=== PATIENT | female | born 1940 | race Caucasian/White ===

== ENCOUNTER 2016-10-03 09:06 | Inpatient (IN) | payer OTHER ==
[2016-09-07 13:57] VITALS: BMI 24.0
--- NOTE | 2016-09-07 14:28 | PAT Medication Instructions ---
Service Date Sep 07, 2016. Current Home Medication List Aspirin (Aspirin Ec), 81 MG PO QAM Cyanocobalamin (Vitamin B12 500MCG), 1,000 MCG PO QAM Hydrochlorothiazide (Hctz), 25 MG PO QAM Lisinopril (Zestril), 5 MG PO QAM Misc Natural Products (Osteo Bi-Flex Advanced Do), 1 TAB PO BID Naproxen (Aleve), 440 MG PO PRN Pravastatin (Pravachol ), 40 MG PO HS Medication Instructions For Your Scheduled Surgery - Hold the following medications 2 weeks prior to surgery: Misc Natural Products (Osteo Bi-Flex Advanced Do), 1 TAB PO BID - Hold the following medications 7-10 days prior to surgery per surgeon's instructions: Naproxen (Aleve), 440 MG PO PRN - Hold the following medications the morning of surgery: Cyanocobalamin (Vitamin B12 500MCG), 1,000 MCG PO QAM Hydrochlorothiazide (Hctz), 25 MG PO QAM Lisinopril (Zestril), 5 MG PO QAM - Take the following medications the morning of surgery with a sip of water OTHERWISE NOTHING TO EAT OR DRINK AFTER MIDNIGHT: Aspirin (Aspirin Ec), 81 MG PO QAM - Take the following medications as scheduled the night before surgery: Pravastatin (Pravachol ), 40 MG PO HS If you have any questions please call us at [phone] or [phone] or [phone]
[2016-09-07 14:56] LABS: BASO % 0.3 %; BASO ABS # 0.02 K/uL (0-0.2); COMPLETE YES; EOS % 0.8 %; HEMATOCRIT 40.7 % (37-47); IG% 0.1 %; LYMPH % 22.8 %; LYMPH ABS # 1.65 K/uL (1.2-3.4); MEAN CELL VOLUME 87.5 fL (80-100); MEAN CORPUSCULAR HEMOGLOBIN 29.2 pg (25-34); MEAN CORPUSCULAR HGB CONC 33.4 g/dl (32-36); MEAN PLATELET VOLUME 9.6 fL (7.4-10.4); MONO % 6.1 %; NEUT % 69.9 %; PLATELET COUNT 348 K/uL (130-400); RED BLOOD COUNT 4.65 M/uL (4.2-5.4); WHITE BLOOD COUNT 7.24 K/uL (4.8-10.8)
[2016-09-07 15:11] LABS: INR 0.9 (0.9-1.1); PROTHROMBIN TIME (PATIENT) 10.1 SECONDS (9.0-12.0)
--- NOTE | 2016-09-07 15:17 | DIAGNOSTIC IMAGING REPORT ---
TWO VIEW CHEST CLINICAL HISTORY: Preoperative examination. FINDINGS: PA and lateral chest radiographs are obtained. No prior studies are available for comparison at the time of dictation. The cardiomediastinal silhouette is unremarkable. There is atherosclerotic calcification of the thoracic aorta. There are low lung volumes and bibasilar atelectasis. No airspace consolidation or pleural effusion is identified. Nonspecific interstitial thickening is likely chronic. There is no pneumothorax. The skeletal structures are osteopenic. Degenerative change and scoliosis are noted throughout the imaged thoracolumbar spine. IMPRESSION: No active disease in the chest. Electronically signed by: Deep Kenney M.D. 09/07/2016 3:16 PM Dictated Date/Time: 09/07/2016 3:15 PM
[2016-09-07 15:25] LABS: URINE APPEARANCE CLEAR (CLEAR); URINE BILIRUBIN NEG (NEG); URINE COLOR YELLOW; URINE NITRITE NEG (NEG); URINE SPECIFIC GRAVITY 1.009 (1.000-1.030); UROBILINOGEN NEG (NEG); ZZUR CULT IF INDIC CLEAN CATCH NO
[2016-09-07 15:30] LABS: MANUAL MICROSCOPIC REQUIRED? NO; REVIEW REQ? NO
[2016-09-07 16:21] LABS: BUN/CREATININE RATIO 18.2 (10-20); CALCIUM 9.8 mg/dl (8.5-10.1); CREATININE 0.69 mg/dl (0.60-1.20); POTASSIUM 3.9 mmol/L (3.5-5.1)
--- NOTE | 2016-10-02 11:44 | HISTORY & PHYSICAL EXAMINATION ---
DATE OF ADMISSION: 10/03/2016 CHIEF COMPLAINT: Left knee pain. HISTORY OF PRESENT ILLNESS: Samantha is a 75-year-old female with an 8-9 year history of left knee pain. She rates her pain as 6/10. She has pain with her daily activities. She has limited standing and walking tolerance. Pain is worse with weightbearing. The patient has failed injections, home exercise program, knee bracing and anti-inflammatories without relief. She has failed conservative treatment and is scheduled for left knee replacement. PAST MEDICAL HISTORY: Hypertension, hypercholesterolemia. She denies heart disease, diabetes or DVT. PAST SURGICAL HISTORY: Excision of brain tumor, benign. SOCIAL HISTORY: The patient denies alcohol or tobacco use. She lives in a single story home. She is and retired. FAMILY HISTORY: Positive for DVT in her sister. MEDICATIONS: Hydrochlorothiazide 25 mg daily, lisinopril 5 mg daily, pravastatin 40 mg daily, aspirin 81 mg daily, BioFlex and vitamin B12 at 1000 mcg daily. ALLERGIES: CLINDAMYCIN CAUSES HIVES. REVIEW OF SYSTEMS: See HPI. Ten other systems reviewed, all negative. PHYSICAL EXAMINATION: VITAL SIGNS: Height 5 feet 2 inches, weight 131 pounds, BMI is 24. GENERAL: This is a well-developed and well-nourished female who is alert and oriented x3. Mood and affect are appropriate. HEENT: Normocephalic and atraumatic. Mucous membranes are moist and intact. NECK: Supple without lymphadenopathy. HEART: Regular rate and rhythm without murmurs, rubs or gallops. LUNGS: Clear to auscultation without wheezes or rhonchi. ABDOMEN: Soft and nontender. Bowel sounds are equal and active. EXTREMITIES: No ecchymosis, redness or warmth. She has a varus deformity. Range of motion is from 5-100 degrees. She has no laxity. She is neurovascularly intact with +5/5 strength. X-RAY EXAMINATION: AP and lateral views show joint space narrowing and osteophyte formation. IMPRESSION: Degenerative joint disease, left knee. PLAN: The patient will be admitted for a left total knee arthroplasty. We will plan on aspirin for DVT prophylaxis. She has [facility] and will need either outpatient or home nursing agency for physical therapy.
[~2016-10-03] VITALS: Ht 157.5 cm; Wt 59.6 kg
[2016-10-03] VITALS (7 sets, daily range): BP systolic 108–169; BP diastolic 67–93; PULSE 89–110; TEMP 36.3–36.9; O2SAT 94–99; Ht 157.5 cm; Wt 59.6 kg
[2016-10-03] MEDS: TRANEXAMIC ACID INJ 1,000 MG in SODIUM CHLORIDE 0.9% 100ML 100 ML IV SCH ×2 (06:30→12:00)
[~2016-10-03 09:06] MED LIST: ACETAMINOPHEN 500 MG TAB PO SCH; ASPI81TA28 PO; CEFAZOLIN 2000 MG/60 ML D5W 60 ML IV SCH; CYAN500T13 PO; CeleBREX 200 MG CAP PO SCH; DEXAMETHASONE 4 MG TAB PO SCH; FAMOTIDINE 20 MG TAB PO SCH; GABAPENTIN 300 MG CAP PO SCH; HYDR25TA4 PO; LACTATED RINGER'S 1000ML 1,000 ML IV SCH; LACTATED RINGER'S 1000ML 500 ML IV SCH; LISI-729 PO; METOCLOPRAMIDE HCL 10 MG TAB PO SCH; MISCTAB78 PO; NAPR1TAB9 PO; OXYCODONE HCL 10 MG TABCR (OXYCONTIN) PO SCH; POLYMYXIN B SULFATE 100,000 UNITS in NSS 100ML IR SCH; PRAV20TA PO; ROPIVACAINE 5MG/ML 30 ML 150 MG, BUPIVACAINE/EPINEPHR 0.5% MPF 30 ML, KETOROLAC TROMETH... INFIL SCH; VANCOMYCIN INJ 400 MG in NSS 100ML IR SCH
[2016-10-03] MEDS ORDERED: BUPIVACAINE 0.25% 30 ML VIAL ONE (09:18)
[2016-10-03] MEDS ORDERED: BUPIVACAINE 0.5 % 5 MG/1 ML PF 10ML VIAL ONE (09:19)
[2016-10-03] MEDS ORDERED: DIAZ2TAB PO (09:34)
--- NOTE | 2016-10-03 09:50 | History & Physical Bridge Note ---
H&P Re-Evaluation Bridge Note: I have examined the patient, reviewed the History & Physical and in the interval since the performance of the History & Physical I have noted the following changes of clinical significance: No changes noted
[2016-10-03] MEDS ORDERED: LIDOCAINE HCL 2% 2 ML VIAL (20MG/ML) ONE (09:51)
[2016-10-03] MEDS ORDERED: PROPOFOL IV EMULSION 10 MG/ML 20 ML VIAL IV ONE (09:51)
[2016-10-03] MEDS ORDERED: MIDAZOLAM HCL 1 MG/ML 2ML VIAL ONE (09:52)
[2016-10-03] MEDS ORDERED: BACITRACIN 50000 UNIT VIAL ONE (10:33)
[2016-10-03] MEDS ORDERED: POVIDONE-IODINE OP SOLN 30 ML BTL ONE (10:33)
[2016-10-03] MEDS ORDERED: ORTHO JOINT ANESTHETIC ONE (10:33)
[2016-10-03] MEDS ORDERED: BUPIVACAINE/EPINEPHRINE 0.25% 1:200,000 30 ML VIAL ONE (10:33)
[2016-10-03] MEDS ORDERED: ONDANSETRON INJ 2 MG/ML 2 ML VIAL ONE (12:10)
[2016-10-03] MEDS ORDERED: RANITIDINE HCL 25 MG/ML INJ ONE (12:10)
[2016-10-03] MEDS ORDERED: PHENYLEPHRINE 100MCG/ML 5ML SYR ONE (13:12)
[2016-10-03] MEDS ORDERED: EpHEDrine SULFATE 50MG/5ML SYR ONE (13:12)
--- NOTE | 2016-10-03 13:18 | [facility] Post Operative Brief Note ---
Immediate Operative Summary Operative Date October 03, 2016. Pre-Operative Diagnosis Left Knee Degenerative Joint Disease Post-Operative Diagnosis Same as preop Procedure(s) Performed Left Total Knee Arthroplasty Surgeon Dr. Mckinney Bobbin Inspector Surgeon(s) EVEILO Estimated Blood Loss 50 ML Findings SEVERE DZ Specimens A. Left Knee Bone and Tissue Complication(s) None Disposition Recovery Room / PACU
[2016-10-03] MEDS ORDERED: BISACODYL 10 MG SUPP PR PRN (13:30)
[2016-10-03] MEDS ORDERED: MoRPHine SULFATE 2 MG/ML CARP IV PRN (13:30)
[2016-10-03] MEDS ORDERED: ZOLPIDEM TARTRATE 5 MG TAB PO PRN (13:30)
[2016-10-03] MEDS ORDERED: OXYCODONE HCL IR 5 MG TAB (IMMEDIATE RELEASE) PO PRN (13:30)
[2016-10-03] MEDS ORDERED: ALUMINUM/MAGNESIUM/SIMETH (MAALOX MAX) 30 ML UDC PO PRN (13:30)
[2016-10-03] MEDS ORDERED: TRAMADOL HCL 50 MG TAB PO PRN (13:30)
[2016-10-03] MEDS ORDERED: METOCLOPRAMIDE HCL INJ 5 MG/ML 2 ML VIAL IV PRN (13:30)
[2016-10-03] MEDS ORDERED: KETOROLAC TROMETHAMINE 15 MG/ML VIAL IV. PRN (13:30)
[2016-10-03] MEDS ORDERED: MAGNESIUM HYDROXIDE SUSP 30 ML UDC PO PRN (13:30)
[2016-10-03] MEDS ORDERED: ONDANSETRON INJ 2 MG/ML 2 ML VIAL IV PRN ×2 (13:30→14:30)
[2016-10-03] MEDS ORDERED: DiphenhydrAMINE HCL 50 MG/ML VIAL IV PRN (13:30)
[2016-10-03] MEDS ORDERED: SOD PHOSPHATE/SOD BIPHOSPHATE ENEMA 132 ML BTL PR PRN (13:30)
[2016-10-03] MEDS ORDERED: PHENYLEPHRINE 100MCG/ML 5ML SYR IV PRN (14:30)
[2016-10-03] MEDS ORDERED: EpHEDrine SULFATE INJ 50 MG/ML AMP IV PRN (14:30)
[2016-10-03] MEDS ORDERED: KETOROLAC TROMETHAMINE 30 MG/ML VIAL IV. PRN (14:30)
[2016-10-03] MEDS ORDERED: ATROPINE SULFATE 0.1 MG/ML 5ML SYR IV PRN (14:30)
[2016-10-03] MEDS ORDERED: HYDROmorphone INJ 2 MG/ML SYR/VIAL IV PRN (14:30)
--- NOTE | 2016-10-03 14:41 | DIAGNOSTIC IMAGING REPORT ---
LEFT KNEE 1 OR 2 VIEWS ROUTINE CLINICAL HISTORY: AP/LATERAL IN PACU LEFT KNEE joint replacement COMPARISON: None. DISCUSSION: Anatomic alignment status post total left knee replacement. Good contact between prosthetic and Bone. Expected soft tissue postoperative change. IMPRESSION: Anatomic alignment status post total left knee replacement Electronically signed by: Brandin Magallanes M.D. 10/03/2016 2:40 PM Dictated Date/Time: 10/03/2016 2:39 PM
--- NOTE | 2016-10-03 15:45 | Anesthesiology Progress Note ---
Anesthesia Post Op Note Date & Time October 03, 2016 at 15:45 Vital Signs Pain Intensity: 0 Vital Signs Past 12 Hours Date Time Temp Pulse Resp B/P Pulse Ox O2 Delivery O2 Flow Rate FiO2 10/03/16 15:25 92 18 105/63 97 Nasal Cannula 2 10/03/16 15:15 89 16 106/66 96 Nasal Cannula 2 10/03/16 15:05 37.1 92 24 107/68 97 Nasal Cannula 2 10/03/16 14:55 90 16 100/67 94 Nasal Cannula 2 10/03/16 14:45 92 16 103/73 98 Nasal Cannula 2 10/03/16 14:35 36.9 95 20 104/67 98 Nasal Cannula 2 10/03/16 14:25 92 22 112/65 98 Nasal Cannula 2 10/03/16 14:15 92 18 102/64 99 Nasal Cannula 2 10/03/16 14:05 94 18 106/67 99 Nasal Cannula 2 10/03/16 13:56 36.5 93 16 102/59 98 Nasal Cannula 2 10/03/16 09:45 36.9 96 18 169/93 99 Room Air Notes Mental Status: alert / awake / arousable, participated in evaluation Pt Amnestic to Procedure: Yes Nausea / Vomiting: adequately controlled Pain: adequately controlled Airway Patency, RR, SpO2: stable & adequate BP & HR: stable & adequate Hydration State: stable & adequate Anesthetic Complications: no major complications apparent
[2016-10-03] MEDS: D5W AND 1/2NSS + 20MEQ KCL 1,000 ML IV SCH (18:31)
--- NOTE | 2016-10-03 20:06 | OPERATIVE REPORT ---
DATE OF OPERATION: 10/03/2016 PREOPERATIVE DIAGNOSIS: Degenerative arthritis, left knee. POSTOPERATIVE DIAGNOSIS: Same. PROCEDURE: Left total knee with patient matched implant. SURGEON: Dr. Mckinney. GOLD STAMPER: Osorio Pierre PA-C. ANESTHESIA: Spinal. BLOOD LOSS: 50 mL. REPLACEMENT FLUIDS: 1600 mL crystalloid. DRAINS: Hemovacs x1. CULTURES: None. COMPLICATIONS: None. COMPONENTS USED: Lubin \T\ Nephew Journey Knee System: Femur size 5, tibia size 4 x 9, patella size 38. NOTE: Osorio Pierre PA-C was present and assisted throughout due to the complicated nature of this case. He helped with preparation and setup, first assisted throughout and personally closed the capsule, subcutaneous and skin layers and applied the postoperative dressing. OPERATION AND FINDINGS: DESCRIPTION: Following satisfactory spinal, the patient was supine. A tourniquet was placed but not inflated. The lower extremity was prepared with ChloraPrep and draped sterilely. Following a surgical time-out, a midline incision was made with a median parapatellar arthrotomy. The knee showed severe grade 4 changes throughout with severe disease of the patellofemoral joint and grade 4 changes also of the medial compartment. The cruciate ligaments were excised. The patient matched femoral block was applied. Femoral distal rotation and resection were set and completed. The 4-in-1 block was used to finish preparation of the femur. The patient matched tibial block was applied. Tibial resection was completed. The patella was freehand cut. Soft tissue balancing was completed and a trial reduction showed good tensioning stability on the collateral ligaments, stable range of motion with full extension and the patella tracked well. The trial components were removed. The capsule was prepared with the orthopedic cocktail and after irrigation, the components were cemented using Simplex G cement. When the cement had hardened, the knee was checked and showed good stability. A Betadine soak was performed. When the Betadine was irrigated 2 drains were placed. The arthrotomy was closed with a running suture of 0 V-Loc and reinforced with 1 Vicryl. Subcutaneous tissues were closed with 2-0 Vicryl and the skin with a running subcuticular stitch of 3-0 V-Loc. Dermabond and a dry dressing were applied. The patient was returned to her bed in stable condition. I attest to the content of the Intraoperative Record and any orders documented therein. Any exceptio ns are noted below.
[2016-10-03] MEDS: CEFAZOLIN IV 1,000 MG in DEXTROSE 5% 50ML 50 ML IV SCH (20:25)
[2016-10-03] MEDS: ASPIRIN 81 MG ECTAB PO SCH (20:27)
[2016-10-03] MEDS ORDERED: SENNA 8.6 MG TAB PO SCH (21:00)
[2016-10-03] MEDS ORDERED: PRAVASTATIN SOD 40 MG TAB PO SCH (21:00)
[2016-10-03] MEDS: ACETAMINOPHEN 500 MG TAB PO SCH (22:22)
[2016-10-04 03:15] VITALS: BP 107/68; PULSE 89; TEMP 36.9; O2SAT 94
[2016-10-04] MEDS: CEFAZOLIN IV 1,000 MG in DEXTROSE 5% 50ML 50 ML IV SCH (03:15)
[2016-10-04] MEDS: D5W AND 1/2NSS + 20MEQ KCL 1,000 ML IV SCH (03:15)
[2016-10-04] MEDS: ACETAMINOPHEN 500 MG TAB PO SCH (05:38)
[2016-10-04 07:00] LABS: HEMATOCRIT 33.5 % (37-47); MEAN CELL VOLUME 86.8 fL (80-100); MEAN CORPUSCULAR HEMOGLOBIN 29.5 pg (25-34); MEAN PLATELET VOLUME 9.6 fL (7.4-10.4); PLATELET COUNT 291 K/uL (130-400); RED BLOOD COUNT 3.86 M/uL (4.2-5.4); WHITE BLOOD COUNT 12.51 K/uL (4.8-10.8)
[2016-10-04 07:41] LABS: BUN/CREATININE RATIO 22.7 (10-20); CALCIUM 8.5 mg/dl (8.5-10.1); CREATININE 0.81 mg/dl (0.60-1.20)
--- NOTE | 2016-10-04 07:54 | Anesthesiology Progress Note ---
Anesthesia Post Op Note Date & Time October 04, 2016 at 07:54 Vital Signs Pain Intensity: 0.0 Vital Signs Past 12 Hours Date Time Temp Pulse Resp B/P Pulse Ox O2 Delivery O2 Flow Rate FiO2 10/04/16 03:15 36.9 89 16 107/68 94 Room Air 10/03/16 23:30 Room Air 10/03/16 22:56 36.3 99 16 110/70 95 Room Air Notes Mental Status: alert / awake / arousable, participated in evaluation Pt Amnestic to Procedure: Yes Nausea / Vomiting: adequately controlled Pain: adequately controlled Airway Patency, RR, SpO2: stable & adequate BP & HR: stable & adequate Hydration State: stable & adequate Anesthetic Complications: no major complications apparent
[2016-10-04] MEDS ORDERED: ONDA8TAB6 PO (08:01)
[2016-10-04] MEDS ORDERED: SNK PO (08:01)
[2016-10-04] MEDS ORDERED: CLB200 PO (08:01)
[2016-10-04] MEDS ORDERED: ACET-1138 PO (08:01)
[2016-10-04] MEDS ORDERED: RXC5 PO (08:01)
[2016-10-04] MEDS ORDERED: ASPI81TA28 PO (08:01)
--- NOTE | 2016-10-04 08:01 | Orthopedic Progress Note ---
Orthopedic Progress Note Date of Service October 04, 2016. Subjective Post OP Day: 1 (L TKA ) Reports: feeling well, pain controlled w PO medications, Denies: SOB, complaints , light headedness, nausea / vomiting Objective calves soft nontender, N/V intact, dressing C/D/I, A&O x3, toes mobile, hemovac drainage (125 LAST SHIFT) Date Time Temp Pulse Resp B/P Pulse Ox O2 Delivery O2 Flow Rate FiO2 10/04/16 03:15 36.9 89 16 107/68 94 Room Air 10/03/16 23:30 Room Air 10/03/16 22:56 36.3 99 16 110/70 95 Room Air 10/03/16 19:15 36.6 98 16 113/73 98 Nasal Cannula 3.0 10/03/16 18:15 36.6 110 18 132/78 98 Nasal Cannula 3.0 10/03/16 17:15 36.8 101 16 120/75 98 Nasal Cannula 3.0 10/03/16 16:15 Nasal Cannula 3.0 10/03/16 16:15 36.9 97 14 108/67 94 Nasal Cannula 3.0 10/03/16 16:15 94 Nasal Cannula 3.0 10/03/16 15:55 36.9 92 22 103/59 96 Nasal Cannula 2 10/03/16 15:45 36.9 94 17 103/62 95 Nasal Cannula 2 10/03/16 15:45 36.8 89 16 116/69 98 Nasal Cannula 3.0 10/03/16 15:35 92 22 103/63 95 Nasal Cannula 2 10/03/16 15:25 92 18 105/63 97 Nasal Cannula 2 10/03/16 15:15 89 16 106/66 96 Nasal Cannula 2 10/03/16 15:05 37.1 92 24 107/68 97 Nasal Cannula 2 10/03/16 14:55 90 16 100/67 94 Nasal Cannula 2 10/03/16 14:45 92 16 103/73 98 Nasal Cannula 2 10/03/16 14:35 36.9 95 20 104/67 98 Nasal Cannula 2 10/03/16 14:25 92 22 112/65 98 Nasal Cannula 2 10/03/16 14:15 92 18 102/64 99 Nasal Cannula 2 10/03/16 14:05 94 18 106/67 99 Nasal Cannula 2 10/03/16 13:56 36.5 93 16 102/59 98 Nasal Cannula 2 10/03/16 09:45 36.9 96 18 169/93 99 Room Air Laboratory Results 24 Hours: Test 10/04/16 06:40 Hematocrit 33.5 % Hemoglobin 11.4 g/dL Assessment & Plan Assessment: POD 1 L TKA Plan: HOME TODAY W HOME HEALTH PT WILL CHOOSE Inhouse Planning Pain Management: Celebrex, PO Tylenol, Oxy IR DVT Prophylaxis: TEDs, SCDs, ASA Discharge Planning Discharge Planning: home with home health Pain Management: Celebrex, PO Tylenol, Oxy IR DVT Prophylaxis: TEDs, ASA
--- NOTE | 2016-10-04 08:02 | Discharge Instructions ---
Discharge Instructions Date of Service October 04, 2016. Admission Reason for Admission: Left Knee Degenerative Arthritis Discharge Discharge Diagnosis / Problem: sp left TKA Discharge Goals Goal(s): Decrease discomfort, Improve function, Increase independence Activity Recommendations Activity Limitations: per Instructions/Follow-up section . Instructions / Follow-Up Instructions / Follow-Up ACTIVITY RECOMMENDATIONS: SELF CARE INSTRUCTIONS AFTER TOTAL KNEE REPLACEMENT A. You may need to continue a physical therapy program after discharge from the hospital. There are several options available to you. Your doctor will assist you in selecting the best one for you. 1. An out-patient facility 2 to 3 times a week for therapy or home therapy. 2. Continue working on all exercises taught to you in the hospital. Your goals should be to increase bending of your knee to 90 degrees and beyond and to fully straighten your knee. B. You may progress at your own pace from walking with a walker or crutches to a cane; then to no assistive devices. C. Make walking a part of your daily routine. Be up as much as comfortable with rest periods throughout the day. Rest with leg elevation is very important. Use the ice wrap frequently for the first 3-4 weeks. D. There are no restrictions on activities. You may ride in a car, shop, participate in first leveler and all social activities. E. Wear the long elastic stockings (MANFRED hose) 20 hours a day for 2 weeks after surgery. They can be removed several times a day for laundering and for a bath. F. You may shower, no tub baths until cleared by your doctor. SPECIAL CARE INSTRUCTIONS: VERY IMPORTANT TO READ AND REVIEW A. There are a few signs you need to watch for after you are home. Call [facility] if you notice any of the followin. Increased severe knee pain. Some pain is expected especially when you exercise. 2. Increased swelling in your leg or knee; pain or swelling of the calf muscle in either lower leg. 3. Any fluid drainage from the incision. 4. Shortness of breath or chest pain. B. Please call [facility] at if you have any concerns or questions about your operation or recovery. The doctor or his nurse will return your call promptly. C. You must take antibiotics before dental work, bladder, bowel or other surgery. Your doctor will provide you with a permanent care to carry describing this precaution. IMPORTANT: * REMEMBER TO TAKE ASPIRIN, 81 MG, TWICE DAILY FOR 4 WEEKS UNLESS OTHERWISE DIRECTED. THIS IS YOUR BLOOD THINNER. * HIGH RISK PATIENTS MAY BE PRESCRIBED A STRONGER BLOOD THINNER. THIS WILL BE PROVIDED AT DISCHARGE. * CALL IF INCREASED PAIN, REDNESS, DRAINAGE OR FEVER GREATER THAT 101. * WEAR MANFRED HOSE 20 HOURS PER DAY FOR 2 WEEKS. DERMABOND Prineo- This is a mesh tape dressing that is covered with glue. It should remain in place until the incision is properly healed, usually 10-14 days. This dressing is designed to naturally slough off. You may trim the excess mesh tape as it peels off. Incision may be briefly wet in a shower. Dry immediately by blotting with a clean, dry towel. Do not bath or swim until instructed by your doctor. Do not scratch, rub, or pick at the dressing. Do not apply any topical ointments or lotions until dressing is completely removed and/or instructed by your doctor. There may be a small piece of suture material at one end of your incision. Do not pull or trim this. If it is bothersome or catching on clothing, you may cover it with a band-aid. FOLLOW UP VISIT: If appointment is not already scheduled: Please call [facility] to make a follow-up appointment for 2 weeks after your surgery at . Current Hospital Diet Patient's current hospital diet: Regular Diet Discharge Diet Recommended Diet: Regular Diet Procedures Procedures Performed: Left Total Knee Arthroplasty Pending Studies Studies pending at discharge: no Medical Emergencies . Who to Call and When: Medical Emergencies: If at any time you feel your situation is an emergency, please call 911 immediately. . Non-Emergent Contact Non-Emergency issues call your: Surgeon . "Provider Documentation" section prepared by Maricruz Diallo. . VTE Core Measure Inpt VTE Proph given/why not?: Other Anticoagulation, T.E.DLynnette Terry, SCD's [place] Drug Monitoring Program Search Results: patient reviewed within database, no issues identified
[2016-10-04] MEDS: ASPIRIN 81 MG ECTAB PO SCH (08:20)
[2016-10-04 08:32] VITALS: BP 120/76; PULSE 79; TEMP 36.5; O2SAT 95
[2016-10-04] MEDS ORDERED: LISINOPRIL 5 MG TAB PO SCH (09:00)
[2016-10-04] MEDS ORDERED: CYANOCOBALAMIN 500 MCG TAB (VIT B-12) PO SCH (09:00)
[2016-10-04] MEDS ORDERED: PANTOprazole SOD 40 MG TAB PO SCH (09:00)
[2016-10-04] MEDS ORDERED: HYDROCHLOROTHIAZIDE 25 MG TAB PO SCH (09:00)
[2016-10-04] MEDS ORDERED: MULTIVITAMIN TAB PO SCH (09:00)
[2016-10-04 11:00] VITALS: BP 125/76; PULSE 80; TEMP 36.5; O2SAT 96
[2016-10-04 12:33] VITALS: BP 125/76; PULSE 80; TEMP 36.5; O2SAT 96
--- NOTE | 2016-10-05 11:59 | DISCHARGE SUMMARY ---
DISCHARGE DIAGNOSIS: Degenerative joint disease, left knee. SECONDARY DIAGNOSES: Hypertension, hypercholesterolemia. CONSULTS: None. COMPLICATIONS: None. PROCEDURES: Left total knee arthroplasty performed by Dr. Zain Mckinney on 10/03/2016. BRIEF HISTORY: As dictated in the history and physical. HOSPITAL SUMMARY: The patient was admitted on the above-noted date and had the above-noted surgery performed which she tolerated well. On the first postoperative day, she was feeling well and pain was controlled. She had no complaints. Calves were soft and nontender, neurovascularly intact. Dressings clean, dry and intact. Toes were mobile. Vital signs were stable and she was afebrile. Hemoglobin was 11.4 and she was started on physical therapy protocol and continued on DVT prophylaxis and pain management. She was otherwise remaining stable and progressing with her physical therapy and it was felt she could be discharged to home on 10/04/2016. For further review, please see chart. LAB AND X-RAY DATA: As per chart. DISCHARGE INSTRUCTIONS: The patient was discharged to home in satisfactory condition on 10/04/2016. DIET: Regular. ACTIVITY: Follow TK instruction sheets and special care instructions as noted and follow up with Dr. David Mckinney in 2 weeks. The patient to call for appointment if one has not been made for you. DISCHARGE MEDICATIONS: Acetaminophen 1000 mg p.o. q. 8 hours for 30 days, Celebrex 200 mg p.o. daily, Zofran 8 mg p.o. q. 8 hours p.r.n. nausea, oxycodone 5-10 mg p.o. q. 4 hours p.r.n. pain, Senna 17.2 mg at bedtime. Resume vitamin B12 1000 mcg p.o. q.a.m., diazepam 2 mg p.o. as directed, hydrochlorothiazide 25 mg p.o. q.p.m., lisinopril 5 mg p.o. q.a.m., Osteo Bi-Flex 1 tab p.o. b.i.d. and pravastatin 40 mg p.o. at bedtime, aspirin 81 mg p.o. b.i.d. and 30 days afterwards resume once daily dosing. Stop taking naproxen.
[2016-10-06] MEDS ORDERED: CeleBREX 200 MG CAP PO SCH (08:00)
== END 2016-10-04 13:13 | disposition home health service (06) | DRG 470 ==
LOC: ENRESERVTM → ENRESERVDT → C.ACU 09:06 → C.MSW 13:21
PROVIDERS: ADMIT Orthopaedic Surgery; ATTEND Orthopaedic Surgery
PROC: 0SRD0J9 Replacement of Left Knee Joint with Synthetic Substitute, Cemented, Open Approach (ICD-10-PCS; principal; 2016-10-03 11:00)
DX: M17.12 Unilateral primary osteoarthritis, left knee (principal); I10 Essential (primary) hypertension; E78.00 Pure hypercholesterolemia, unspecified; G50.0 Trigeminal neuralgia; Z79.82 Long term (current) use of aspirin; Z79.1 Long term (current) use of non-steroidal anti-inflammatories (NSAID); Z79.899 Other long term (current) drug therapy